=== PATIENT | female | born 1950 | race Caucasian/White ===

== ENCOUNTER 2023-08-28 20:05 | Inpatient (IN) | payer MEDICARE, SELFPAY ==
--- NOTE | 2023-08-28 | ECG_ITS ---
Test Reason : WEAKNESS Blood Pressure : / mmHG Vent. Rate : 115 BPM Atrial Rate : 115 BPM P-R Int : 152 ms QRS Dur : 080 ms QT Int : 344 ms P-R-T Axes : 068 037 092 degrees QTc Int : 475 ms Sinus tachycardia Low voltage QRS Cannot rule out Anterior infarct , age undetermined Abnormal ECG No previous ECGs available Referred By: Generic ED Physician Electronically Signed By:Shahram Whyte
--- NOTE | ~2023-08-28 | CT_ITS ---
EXAMINATION: CT HEAD WITHOUT CONTRAST CLINICAL INFORMATION: Fall. Injury. Pain. COMPARISON: None available. TECHNIQUE: Contiguous axial imaging was performed from the skull base to vertex without intravenous administration of contrast. This CT examination was performed using dose optimization techniques as appropriate, variously including the following: *Automated exposure control *Adjustment of mA and/or kV according to patient size (this includes techniques or standardized protocols for targeted exams where dose is matched to indication/reason for exam; i.e. extremities or head) *Use of iterative reconstruction technique DLP: 566 mGy-cm FINDINGS: The lateral, third and fourth ventricles are normally outlined. The cortical sulci and basal cisterns are normally outlined as well. There is scattered bilateral periventricular and central white matter diminished attenuation. There is no acute territorial defect, hemorrhage or midline shift. The extra-axial spaces are unremarkable. Calvarium/scalp: Intact. Maxillofacial sinuses and mastoids: Clear as visualized. CT/CT head/brain wo IV con IMPRESSION: No acute intracranial process seen.
--- NOTE | ~2023-08-28 | XR_ITS ---
EXAMINATION: XR CHEST CLINICAL INFORMATION: COPD. COMPARISON: None available. TECHNIQUE: Frontal view of the chest was obtained. FINDINGS: The heart, great vessels, pulmonary vasculature and mediastinum are normal. There is atherosclerotic calcification of the aortic knob. There is mild hyperinflation. There is biapical pleural and parenchymal scarring. No infiltrate, effusion or pneumothorax is seen. There is no acute osseous abnormality. XR/XR chest 1V IMPRESSION: No focal infiltrate or congestive heart failure is seen.
--- NOTE | ~2023-08-28 | MR_ITS ---
EXAMINATION: MR ABDOMEN WITHOUT CONTRAST CLINICAL INFORMATION: Elevated LFTs, common bile duct dilation COMPARISON: CT abdomen pelvis from earlier same day TECHNIQUE: MRI of the abdomen without contrast was obtained using routine sequences. Heavily T2 weighted MRCP sequences were also obtained. FINDINGS: LUNG BASES: The visualized lung bases are unremarkable. GALLBLADDER: Surgically absent. LIVER AND BILIARY TREE: The liver is normal in signal and morphology. Tiny, 5 mm posterior right hepatic lobe, segment 6 simple cyst (series 8, image 17). No suspicious liver lesion within limitations of noncontrast technique. Moderate diffuse intrahepatic and extrahepatic biliary duct dilation, with common bile duct measuring up to 1.5 cm in maximal diameter at the juani hepatis, and smoothly/gradually tapering towards the ampulla of Vater without discrete obstructing lesion or choledocholithiasis identified. PANCREAS: Conventional pancreatic ductal anatomy. No pancreatic duct dilation or irregularity. Preservation of the usual intrinsic parenchymal T1 hyperintense signal. SPLEEN: Tiny, 4 mm anterior splenic cyst. Otherwise unremarkable. ADRENAL GLANDS: Unremarkable KIDNEYS AND URETERS: Benign-appearing T2 hyperintense bilateral renal cysts, no imaging follow-up recommended. GASTROINTESTINAL TRACT: Unremarkable. LYMPH NODES: No lymphadenopathy. VASCULAR: Unremarkable ABDOMINAL WALL: Unremarkable. OSSEOUS STRUCTURES: Unremarkable. MR/MR MRCP IMPRESSION: Moderate diffuse biliary duct dilation which smoothly/gradually tapers towards the Ampulla of Vater without discrete obstructing lesion, choledocholithiasis, or associated intrahepatic ductal dilation identified. Degree of biliary ductal dilation is greater than expected for postcholecystectomy state, and in the setting of underlying LFT abnormalities, consider dedicated ERCP to assess for ampullary stricture/other imaging occult abnormality.
--- NOTE | ~2023-08-28 | CT_ITS ---
EXAMINATION: CT CHEST, ABDOMEN AND PELVIS WITH CONTRAST CLINICAL INFORMATION: Chest pain. COMPARISON: None available. TECHNIQUE: Multidetector volumetric CT imaging of the chest, abdomen and pelvis was obtained after the administration of 85 mL of Omnipaque 350 intravenous contrast without immediate adverse reactions. Axial MIP volume rendering provided. Sagittal and coronal reformatted images were obtained. This CT examination was performed using dose optimization techniques as appropriate, variously including the following: *Automated exposure control *Adjustment of mA and/or kV according to patient size (this includes techniques or standardized protocols for targeted exams where dose is matched to indication/reason for exam; i.e. extremities or head) *Use of iterative reconstruction technique DLP: 960 mGy-cm FINDINGS: CARD ROOM MANAGER: Unremarkable. LUNGS: There is diffuse emphysematous change most pronounced in the upper lung hall. There is right middle lobe and bibasilar scarring. There is no active infiltrate. MEDIASTINUM: The mediastinum is normal. PLEURA: There is no pleural effusion. No pleural mass or thickening. AXILLA: No lymphadenopathy. LIVER, GALLBLADDER, AND BILIARY TREE: The liver is normal in appearance. There is mild intrahepatic biliary duct dilatation. There is also common bile duct dilatation up to 1.2 cm. There has been a prior cholecystectomy. PANCREAS: Unremarkable. SPLEEN: Unremarkable. ADRENAL GLANDS: Unremarkable. KIDNEYS AND URETERS: The kidneys are normal in size, shape, and attenuation. There is a 3.2 cm cyst upper pole right kidney. There is a 1.3 cm cyst mid to lower pole left kidney. There is no hydronephrosis. BLADDER: Unremarkable.. GASTROINTESTINAL TRACT: There is thickening of the ascending, transverse and descending colon. There are diverticula of the descending and the sigmoid colon without evidence for diverticulitis. The appendix is not identified. ABDOMINAL WALL: Unremarkable. LYMPH NODES: Normal. VASCULAR: There is atherosclerotic plaque of the abdominal aorta with infrarenal aortic bulges measuring up to 2.7 cm. PELVIC VISCERA: Unremarkable. OSSEOUS STRUCTURES: Unremarkable. CT/CT chest w IV con IMPRESSION: 1. Diffuse emphysematous change. 2. Thickening of the ascending, transverse and descending colon. This is consistent with colitis. 3. Diverticulosis without evidence of diverticulitis. 4. Atherosclerotic plaque of the abdominal aorta with infrarenal aortic bulges measuring up to 2.7 cm. 5. Intrahepatic and extrahepatic biliary duct dilatation. The patient is status post cholecystectomy.
--- NOTE | ~2023-08-28 | CT_ITS ---
EXAMINATION: CT CHEST, ABDOMEN AND PELVIS WITH CONTRAST CLINICAL INFORMATION: Chest pain. COMPARISON: None available. TECHNIQUE: Multidetector volumetric CT imaging of the chest, abdomen and pelvis was obtained after the administration of 85 mL of Omnipaque 350 intravenous contrast without immediate adverse reactions. Axial MIP volume rendering provided. Sagittal and coronal reformatted images were obtained. This CT examination was performed using dose optimization techniques as appropriate, variously including the following: *Automated exposure control *Adjustment of mA and/or kV according to patient size (this includes techniques or standardized protocols for targeted exams where dose is matched to indication/reason for exam; i.e. extremities or head) *Use of iterative reconstruction technique DLP: 960 mGy-cm FINDINGS: CHIEF ENGINEER DRILLING AND RECOVERY: Unremarkable. LUNGS: There is diffuse emphysematous change most pronounced in the upper lung hall. There is right middle lobe and bibasilar scarring. There is no active infiltrate. MEDIASTINUM: The mediastinum is normal. PLEURA: There is no pleural effusion. No pleural mass or thickening. AXILLA: No lymphadenopathy. LIVER, GALLBLADDER, AND BILIARY TREE: The liver is normal in appearance. There is mild intrahepatic biliary duct dilatation. There is also common bile duct dilatation up to 1.2 cm. There has been a prior cholecystectomy. PANCREAS: Unremarkable. SPLEEN: Unremarkable. ADRENAL GLANDS: Unremarkable. KIDNEYS AND URETERS: The kidneys are normal in size, shape, and attenuation. There is a 3.2 cm cyst upper pole right kidney. There is a 1.3 cm cyst mid to lower pole left kidney. There is no hydronephrosis. BLADDER: Unremarkable.. GASTROINTESTINAL TRACT: There is thickening of the ascending, transverse and descending colon. There are diverticula of the descending and the sigmoid colon without evidence for diverticulitis. The appendix is not identified. ABDOMINAL WALL: Unremarkable. LYMPH NODES: Normal. VASCULAR: There is atherosclerotic plaque of the abdominal aorta with infrarenal aortic bulges measuring up to 2.7 cm. PELVIC VISCERA: Unremarkable. OSSEOUS STRUCTURES: Unremarkable. CT/CT abdomen pelvis w IV con IMPRESSION: 1. Diffuse emphysematous change. 2. Thickening of the ascending, transverse and descending colon. This is consistent with colitis. 3. Diverticulosis without evidence of diverticulitis. 4. Atherosclerotic plaque of the abdominal aorta with infrarenal aortic bulges measuring up to 2.7 cm. 5. Intrahepatic and extrahepatic biliary duct dilatation. The patient is status post cholecystectomy.
[2023-08-28 20:20] VITALS: BP 96/70; PULSE 120; O2SAT 87
--- NOTE | 2023-08-28 20:29 | MHC.EDTECH ---
at this time pt changed over into hospital gown and placed on cardiac and o2 monitor, placed on wall 02 at 4 L, vitals taken and pt appears to be in no apparent distress
[2023-08-28 20:32] VITALS: BP 125/49; PULSE 117; RESP 22; TEMP 37.3; O2SAT 95; BMI 28.3
[2023-08-28 20:57] VITALS: BP 125/49; PULSE 117; RESP 20; TEMP 37.3; O2SAT 90
[2023-08-28 20:59] LABS: MANUAL DIFF FLAG NO
[2023-08-28 21:02] LABS: Basophils Percent Auto 0.4 % (0-2); Eosinophils Percent Auto 0.1 % (0-4); Hematocrit 36.2 % (37.0-47.0); Imm Gran Abs Auto 0.03 X10*3/uL (0.00-0.03); Imm Gran Pct Auto 0.4 % (0.0-0.4); Lymphocytes Absolute Auto 0.8 X10*3/uL (1.2-4.9); Lymphocytes Percent Auto 11.1 % (20-40); Mean Corpuscular HGB Conc 33.1 g/dl (31.0-35.0); Mean Corpuscular Hemoglobin 31.1 pg (27.0-33.0); Mean Corpuscular Volume 93.8 fL (80.0-98.0); Mean Platelet Volume 9.8 fL (9.4-12.3); Monocytes Absolute Auto 0.7 X10*3/uL (0.1-1.2); Monocytes Percent Auto 9.9 % (2-11); Neutrophils Absolute Auto 5.6 x10*3/uL (2.0-8.3); Neutrophils Percent Auto 78.1 % (45-73); Platelet Count 254 X10*3/uL (160-400); Red Blood Count 3.86 X10*6/uL (4.20-5.50); Red Cell Distribution Width 12.5 % (11.0-16.0); White Blood Count 7.2 X10*3/uL (4.8-10.8)
[2023-08-28 21:15] LABS: Alanine Aminotransferase 692 U/L (0-31); Albumin Level 3.2 g/dL (3.5-5.0); Alkaline Phosphatase 296 U/L (39-117); Anion Gap 17 (12-20); Aspartate Amino Transferase 1117 U/L (5-31); Bilirubin Total 1.8 mg/dL (0.0-1.0); Blood Urea Nitrogen 12 mg/dL (9-16); Carbon Dioxide 26 mmol/L (22-29); Chloride 101 mmol/L (96-108); Estimated Glomerular Filt Rate 49; Glucose Random 161 mg/dL (60-115); Potassium 3.8 mmol/L (3.3-5.1); Sodium 140 mmol/L (135-145); Total Protein 6.8 g/dL (6.5-8.0)
[2023-08-28 21:37] LABS: Influenza A PCR NEGATIVE (Negative); Influenza B PCR NEGATIVE (Negative); Resp Syncy Virus RNA Qual PCR NEGATIVE (Negative); SARS COV2 PCR INHOUSE NEGATIVE (Negative)
--- NOTE | 2023-08-28 23:37 | ED.GENADULT ---
HPI - General Adult General Chief complaint: Fall Stated complaint: fall yesterday & today, decreased po intake Time Seen by Provider: 08/28/23 23:37 Source: patient, family and RN notes reviewed Mode of arrival: EMS Limitations: no limitations History of Present Illness HPI narrative: 73-year-old female who has a history of COPD on 3 L of oxygen at home, baseline oxygen saturation of 92-94% according to the patient, followed by Dr. Silveira, history of hyperlipidemia presents via EMS for increased weakness and increased falls. Patient states on occasion she would feel unsteady and have a minor fall. However the patient has had 2 falls in the past several days, 1 that resulted in her striking her head. Today the patient fell to her knees and was too weak to get up despite assistance with her family. At that time, her daughter noted her oxygen saturation to be 87% on 3 L. She denies any LOC. She denies any prodromal symptoms. Patient states as she is ambulating she feels weak causing her to fall to the ground. She has not on any anticoagulant medication. No prodromal symptoms. States she had been feeling well otherwise. Today she has had decreased p.o. intake. She is urinating and moving her bowels without difficulty. She denies any recent travel. No new foods or medications. Currently the patient reports feeling weak, and that her legs ?feel heavy?. She denies any alcohol use. Occasional Tylenol use, none recently. She denies any unintended weight loss. Patient does not use a cane or a walker while at home. She spends much of her time sedentary. She lives with her daughter and son-in-law. Related Data Allergies Allergy/AdvReac Type Severity Reaction Status Date / Time Penicillins Allergy Rash Verified 08/28/23 20:33 Sulfa (Sulfonamide Allergy Rash Verified 08/28/23 20:33 Antibiotics) Review of Systems Constitutional: Constitutional: Denies chills, Denies fever(s) and Denies headache(s) Eyes: Eyes: Denies change in vision and Denies other (No redness.) ENT: Denies headache(s) and Denies nasal discharge Cardiovascular: Cardiovascular: Denies chest pain, Denies palpitations and Denies orthopnea Respiratory: Respiratory: Denies cough Gastrointestinal: Gastrointestinal: Denies abdominal pain, Denies melena, Denies hematochezia, Denies diarrhea, Denies nausea and Denies vomiting Genitourinary: Genitourinary: Denies dysuria and Denies urinary urgency Musculoskeletal: Musculoskeletal: Denies back pain, Denies muscle weakness and Denies numbness Integumentary/Breasts: Skin/Breast: Denies rash Neurologic: Denies headache(s), Denies focal weakness and Denies numbness Psychiatric: Psychiatric: Denies depression Endocrine: Endocrine: Denies palpitations ON LICENSE OF [facility] Social History Social History Alcohol intake: never Smoked in Last 30 Days: No Use of substances other than those prescribed or required for medical reasons: No Advance Directives: No Advance Directives Information Provided: No Physical Exam ED Vital Signs: Vital Signs - 24 hr 08/28/23 20:32 08/28/23 20:57 08/29/23 00:10 Temperature 99.1 F 99.1 F 98.7 F Pulse Rate 117 H 117 H 98 Respiratory Rate 22 H 20 20 Blood Pressure 125/49 L 125/49 L 91/47 L Pulse Oximetry 95 90 L 96 Oxygen Delivery Method Nasal Cannula Nasal Cannula Nasal Cannula Oxygen Flow Rate 4 4 08/29/23 02:09 08/29/23 02:55 Temperature Pulse Rate 94 90 Respiratory Rate 16 20 Blood Pressure 107/44 L 99/39 L Pulse Oximetry 96 Oxygen Delivery Method Nasal Cannula Oxygen Flow Rate 4 BMI result Body Mass Index 28.3 Const General: cooperative Orientation/consciousness: patient oriented x3 Resp Other: Lung sounds diminished throughout but no wheezes rales or rhonchi Cardio Rate: regular rate Rhythm: regular rhythm GI Other: Abdomen is soft and nontender. There is no epigastric tenderness. No Romero's sign. No peritoneal signs Neuro General: patient oriented x3 and CN's II-XI intact bilaterally Extrem Other: No calf tenderness or pedal edema. Appraiser is 5/5 bilaterally. Upper extremities are equal to lower extremities. No pronator drift. NIH Stroke Scale Internal: Initial- Upon Arrival Time: 00:05 Level of Consciousness: Alert Level of Consciousness Questions: Answers both questions correctly Level of Consciousness Commands: Performs both tasks correctly Best Gaze: Normal Visual: No visual loss Facial Palsy: Normal Motor Arm (Right): No drift Motor Arm (Left): No drift Motor Leg (Right): No drift Motor Leg (Left): No drift Limb Ataxia: Absent Sensory: Normal Best Language: No aphasia Dysarthia: Normal Extinction and Inattention: No abnormality Score: 0 Course Course Course Narrative: August 29, 2023, 1:57 a.m. I spoke with Dr. Wooten from . Nothing additional at this time given that CT is pending at this time. Message to Dr. Hendrix for transfer of care. 2:[address] Hendrix will see the patient. Signed out to Dr. Randolph with imaging pending. Of note, BP improved to 107 systolic. Patient is resting comfortably at this time and is asymptomatic. No chest pain or shortness of breath. Dr. Randolph aware. Medications Administered Discontinued Medications Generic Name Dose Route Start Last Admin Trade Name Freq PRN Reason Stop Dose Admin Ceftriaxone Sodium 1 gm/ 50 mls @ 100 mls/hr 08/29/23 01:06 08/29/23 02:08 Sodium Chloride IV 08/29/23 01:35 Infused ONCE ONE Infusion Iohexol 85 ml 08/29/23 01:14 08/29/23 01:14 Iohexol 350 Mg/Ml 100 Ml Infus..Btl IV 08/29/23 01:15 85 ml ONCE ONE Administration Medical Decision Making Medical Decision Making MDM Narrative: 73-year-old female who has a history of COPD dependent on 3 L, hyperlipidemia, presenting with increased weakness and falls. Currently the patient has no physical complaints despite generalized weakness. No headache or vision changes. She has not orthostatic. Vitals are hemodynamically stable however patient noted to have fluctuations in her oxygen saturation. Upon my initial examination, patient was on 4 L of oxygen, maintaining a saturation of 87-92%. Patient does confirmed with movement that she feels weak but not necessarily shortness of breath or chest pain. EKG is sinus tach and chest x-ray does not reveal any acute process. Labs at this time demonstrate increased LFTs. The patient does not have a history of this. She is however on atorvastatin and ezetimibe. She denies any regular Tylenol use and no history of hepatitis or recent illness. Given these findings, CT of the abdomen and pelvis to further evaluate, including for malignancy. Due to the patient's falls, check head CT and further evaluate lungs , CT of chest. Hepatitis panel. Urinalysis. Patient's oxygen adjusted to her baseline at 3 L. she is maintaining 92% with a good plus at this time. Patient however will likely need to be brought to the hospital for further evaluation and management as she has not safe for discharge home and further investigation is needed. Discussed with Dr. Randolph who agrees with plan. -I received sign-out from my colleague SHANE Arroyo, CT scan of the abdomen pelvis shows colitis. Otherwise no abnormalities. -CT scans results were discussed with Dr. Hendrix, patient being admitted Differential Diagnosis Differential Diagnoses: The differential diagnosis associated with the presentation includes CVA Metabolic abnormality Malignancy Pneumonia COPD Deconditioning Admission/Observation Consideration of admission/observation: Escalation of care including admission/observation considered Consideration for medical admission if clinically warranted Lab Data MDM Lab Attestation statement: I reviewed the patient's lab results. 08/28/23 20:53 08/28/23 20:53 Labs: Lab Results 08/28/23 08/29/23 08/29/23 Range/Units 20:53 00:32 00:46 WBC 7.2 (4.8-10.8) X10*3/uL RBC 3.86 L (4.20-5.50) X10*6/uL Hgb 12.0 (12.0-16.0) g/dl Hct 36.2 L (37.0-47.0) % MCV 93.8 (80.0-98.0) fL MCH 31.1 (27.0-33.0) pg MCHC 33.1 (31.0-35.0) g/dl RDW 12.5 (11.0-16.0) % Plt Count 254 (160-400) X10*3/uL MPV 9.8 (9.4-12.3) fL Immature Gran % (Auto) 0.4 (0.0-0.4) % Neut % (Auto) 78.1 H (45-73) % Lymph % (Auto) 11.1 L (20-40) % [place] % (Auto) 9.9 (2-11) % Eos % (Auto) 0.1 (0-4) % Baso % (Auto) 0.4 (0-2) % Lymph # (Auto) 0.8 L (1.2-4.9) X10*3/uL [place] # (Auto) 0.7 (0.1-1.2) X10*3/uL Eos # (Auto) 0.0 (0.0-0.4) X10*3/uL Baso # (Auto) 0.0 (0.0-0.2) X10*3/uL Abs Immat Gran (auto) 0.03 (0.00-0.03) X10*3/uL Absolute Neuts (auto) 5.6 (2.0-8.3) x10*3/uL Absolute Nucleated RBC 0.000 (0.0-0.012) X10*3/uL Nucleated RBC % (auto) 0.0 (0.0-0.2) /100WBC Sodium 140 (135-145) mmol/L Potassium 3.8 (3.3-5.1) mmol/L Chloride 101 (96-108) mmol/L Carbon Dioxide 26 (22-29) mmol/L Anion Gap 17 (12-20) BUN 12 (9-16) mg/dL Creatinine 1.09 (0.5-1.4) mg/dL Estim Creat Clear Calc 49.0 Estimated GFR 49 Random Glucose 161 H (60-115) mg/dL Calcium 9.0 (8.4-10.2) mg/dL Total Bilirubin 1.8 H (0.0-1.0) mg/dL AST 1117 H (5-31) U/L ALT 692 H (0-31) U/L Alkaline Phosphatase 296 H (39-117) U/L Total Creatine Kinase 93 (26-140) U/L Troponin I High Sens 23.1 H (<3.5-17.0) ng/L Total Protein 6.8 (6.5-8.0) g/dL Albumin 3.2 L (3.5-5.0) g/dL Vitamin B12 1832 H (200-900) pg/mL Urine Color Dark Yellow Urine Appearance Turbid Urine pH 5.5 (5.0-9.0) Ur Specific [place] >= 1.030 H (1.005-1.025) Urine Protein 100 (2+) H (Neg-Trace) mg/dL Urine Glucose (UA) Negative (Negative) mg/dL Urine Ketones Trace (Negative) mg/dL Urine Blood Negative (Negative) Urine Nitrite Positive H (Negative) Ur Leukocyte Esterase Small (1+) H (Negative) Urine RBC 6-10 H (0-2) /HPF Urine WBC 11-20 H (0-5) /HPF Ur Squamous Epith Cells >20 (0-2) /HPF Urine Bacteria 3+ (None Seen) Hyaline Casts >20 (0-2) /LPF Granular Casts Present Influenza Type A (PCR) NEGATIVE (Negative) Influenza Type B (PCR) NEGATIVE (Negative) RSV RNA Qual (PCR) NEGATIVE (Negative) SARS-CoV-2 RNA (RT-PCR) NEGATIVE (Negative) Independent Interpretation I performed an independent interpretation of an: EKG Interpretation: Sinus tachycardia at 115 beats per minute. No acute ischemic changes. Radiology Impression Discussion of test interpretation with radiology: I have reviewed the radiologist's reading. Radiologist Impression: [place] [id number] CT Scan Report Signed Patient: Carol Vance MR#: [id number] : 1950 Acct:[id number] Age/Sex: 73 / F ADM Date: 08/28/23 Loc: HO.ED Attending Dr: Ordering Physician: Hermilo Arroyo Date of Service: 08/29/23 Procedure(s): CT head/brain wo IV con Accession Number(s): [id number] cc: Physician,Unknown ; Hermilo Arroyo~ EXAMINATION: CT HEAD WITHOUT CONTRAST CLINICAL INFORMATION: Fall. Injury. Pain. COMPARISON: None available. TECHNIQUE: Contiguous axial imaging was performed from the skull base to vertex without intravenous administration of contrast. This CT examination was performed using dose optimization techniques as appropriate, variously including the following: *Automated exposure control *Adjustment of mA and/or kV according to patient size (this includes techniques or standardized protocols for targeted exams where dose is matched to indication/reason for exam; i.e. extremities or head) *Use of iterative reconstruction technique DLP: 566 mGy-cm FINDINGS: The lateral, third and fourth ventricles are normally outlined. The cortical sulci and basal cisterns are normally outlined as well. There is scattered bilateral periventricular and central white matter diminished attenuation. There is no acute territorial defect, hemorrhage or midline shift. The extra-axial spaces are unremarkable. Calvarium/scalp: Intact. Maxillofacial sinuses and mastoids: Clear as visualized. CT/CT head/brain wo IV con IMPRESSION: No acute intracranial process seen. Dictated By: Mateo Benitez MD Signed By: <Electronically signed by Mateo Benitez MD in OV> 08/29/23 0153 DD/ 0110 TD/TT: Product Communications Manager: [address] [address] XRay Report Signed Patient: Carol Vance MR#: [id number] : 1950 Acct:[id number] Age/Sex: 73 / F ADM Date: 08/28/23 Loc: .ED Attending Dr: Ordering Physician: Generic ED Physician Date of Service: 08/28/23 Procedure(s): XR chest 1V Accession Number(s): [id number] cc: Generic ED Physician; Physician,Unknown ~ EXAMINATION: XR CHEST CLINICAL INFORMATION: COPD. COMPARISON: None available. TECHNIQUE: Frontal view of the chest was obtained. FINDINGS: The heart, great vessels, pulmonary vasculature and mediastinum are normal. There is atherosclerotic calcification of the aortic knob. There is mild hyperinflation. There is biapical pleural and parenchymal scarring. No infiltrate, effusion or pneumothorax is seen. There is no acute osseous abnormality. XR/XR chest 1V IMPRESSION: No focal infiltrate or congestive heart failure is seen. Dictated By: Lauro Melara MD Signed By: <Electronically signed by Lauro Melara MD in OV> 08/28/23 2241 DD/ 2145 TD/TT: Product Communications Manager: GONZÁLEZ Hou Historhumaira Clinical information obtained from an independent historian. History obtained from or confirmed by: Other (daughter and son in-law) External Record Review External record reviewed: Inpatient record (No previous admission) Critical Care Time Critical Care Time Critical Care Time: Yes Total Critical Care Time: 60 Attestation: Critial Care time with multiple repeat evaluations, patient and family updates, additional diagnostics ordered and interpreted. Discussion with the attending, GI and Hospital Medicine. Discharge Plan Discharge Clinical Impression: Weakness Patient Disposition: Still a Patient Print Language: Pashto
[2023-08-29] VITALS (10 sets, daily range): BP systolic 68–144; BP diastolic 39–67; PULSE 80–116; RESP 16–95; TEMP 36.4–37.7; O2SAT 90–97
[2023-08-29 00:53] LABS: Appearance Urine Turbid; Color Urine Dark Yellow; Glucose Urine UA Negative (Negative); Leukocyte Esterase Urine Small (1+) (Negative); Nitrite Urine Positive (Negative); PH 5.5 (5.0-9.0); Specific Gravity - Urine >= 1.030 (1.005-1.025); UMIC TRIGGER UACC YES; Urine Blood Negative (Negative); Urine Ketones Trace mg/dL (Negative); Urine Protein 100 (2+) mg/dL (Neg-Trace)
[2023-08-29 01:02] LABS: Troponin-I High Sensitivity 23.1 ng/L (<3.5-17.0)
[2023-08-29 01:07] LABS: Bacteria Urine 3+ (None Seen); Granular Casts Urine Present; Hyaline Casts Urine >20 /LPF (0-2); Squamous Epithelial Cell Urine >20 /HPF (0-2); UACC Culture Trigger YES
[2023-08-29] MEDS: iohexoL 350 MG/ML 100 ML INFUS..BTL 85 ML IV (01:14)
[2023-08-29 01:23] LABS: Vitamin B12 1832 pg/mL (200-900)
[2023-08-29] MEDS: cefTRIAXone sodium 1 GM in 0.9 % Sodium Chloride 50 ML IV (01:27)
[2023-08-29] MEDS: 0.9 % Sodium Chloride 1,000 ML 999 ML IVCONT (03:37)
[2023-08-29] MEDS: metroNIDAZOLE/NS 500 MG/100 ML PIGGYBACK 100 MG IV ×2 (03:37→13:19)
--- NOTE | 2023-08-29 05:24 | P.HPHOSP_ITS ---
History of Present Illness Date of Service: 08/29/23 Attending physician on admission: Reina Parra Chief Complaint: Generalized weakness Carol Vance is a very pleasant 73 years old woman with past medical history significant for hyperlipidemia, diverticulosis and COPD -on home O2 3L/min presents to the emergency department accompanied by her daughter and son-in-law complaining of generalized weakness over the last several days. She also mentioned that over the last week she has fallen twice. Denied any significant trauma. She denied any headache, shortness on breath, chest pain, abdominal pain, nausea, vomiting, fevers or chills. She reported watery nonbloody diarrhea over the last several days. She denied alcohol abuse, tobacco smoking or illicit drug use; and denied use of new medications. Abdominal surgery history is remarkable for cholecystectomy, hysterectomy and appendectomy. In the ED, she was found to have stable vital signs. Her blood pressure has been soft, lowest BP 91/47. Most recent blood pressure is 124/53. Oxygen saturation is normal and currently requiring 2 liters/minute supplemental oxygen which is her baseline. Blood workup is remarkable elevated LFTs, elevated vitamin B12 a slight elevation of troponin. Total CK is normal. CXR is negative. Urinalysis consistent with urinary tract infection. Head CT scan showed normal acute intracranial process. Chest, abdomen pelvis CT scan showed diffuse emphysematous changes, changes consistent with colitis, CBD dilatation up to 1.2 cm with mild intrahepatic biliary duct dilatation. ECG showed sinus tachycardia with a heart rate 115 beats anemia without ischemic changes. ED tx: Ceftriaxone 1 g IV, Flagyl 500 mg IV, NS 1 L bolus. Review of Systems 2 Review of Systems: All 12 systems were reviewed and normal except as noted in HPI. [facility] Medical History (Updated 08/29/23 @ 06:18 by Reina Parra MD) Chronic respiratory failure with hypoxia, on home O2 therapy COPD (chronic obstructive pulmonary disease) Hyperlipidemia Social History Alcohol intake: never Smoked in Last 30 Days: No Use of substances other than those prescribed or required for medical reasons: No Advance Directives: No Advance Directives Information Provided: No Meds Allergies Allergy/AdvReac Type Severity Reaction Status Date / Time Penicillins Allergy Rash Verified 08/28/23 20:33 Sulfa (Sulfonamide Allergy Rash Verified 08/28/23 20:33 Antibiotics) Active Medications: Current Medications Heparin Sodium (Porcine) (Heparin Sodium,Porcine 5,000 Unit/Ml Vial) 5,000 unit SUBCUT Q12H [facility] Lactated Ringer's (Lr) 1,000 mls @ 125 mls/hr IVCONT .Q8H ESTELA Melatonin (Melatonin 3 Mg Tablet) 6 mg PO BEDTIME PRN PRN Reason: Insomnia Sodium Chloride (0.9 % Sodium Chloride Flush 3 Ml Syringe) 3 ml IVFLUSH QSHIFT ESTELA Physical Exam 2 Vital Signs and Narrative: Vital Signs: Last Vital Signs Temp 98.7 F 08/29/23 00:10 Pulse 95 08/29/23 04:20 Resp 16 08/29/23 04:20 BP 124/53 L 08/29/23 04:20 Pulse Ox 96 08/29/23 04:20 O2 Del Method Nasal Cannula 08/29/23 04:20 O2 Flow Rate 3 08/29/23 04:20 Oxygen Flow Rate 4 08/28/23 20:32 BMI result Body Mass Index 28.3 Constitutional - Awake and Alert, No apparent distress. Pleasant. Cooperative. Nasal cannula in place. Afebrile. HEENT - Atraumatic head. PERRL, EOMI. Normal sclerae. Heart - S1S2, RRR, No edema Lungs - Normal lung expansion, Normal respiratory effort, No respiratory distress, CTA bilaterally Abdomen - NT / ND; increased BS; No rebound or guarding Extremities - no calf tenderness bilaterally, no swelling Musculoskeletal - Normal inspection, normal ROM Skin - Warm/Dry. No pallor. No jaundice. Neurological - Alert & oriented x3. No focal weakness grossly noted. Normal speech. Psychological - Appropriate affect Results Labs 08/28/23 20:53 08/28/23 20:53 Labs: Laboratory Results - last 24 hr 08/28/23 08/29/23 08/29/23 20:53 00:32 00:46 MCV 93.8 MCH 31.1 MCHC 33.1 RDW 12.5 Plt Count 254 MPV 9.8 Immature Gran % (Auto) 0.4 Neut % (Auto) 78.1 H Lymph % (Auto) 11.1 L [place] % (Auto) 9.9 Eos % (Auto) 0.1 Baso % (Auto) 0.4 Lymph # (Auto) 0.8 L [place] # (Auto) 0.7 Eos # (Auto) 0.0 Baso # (Auto) 0.0 Abs Immat Gran (auto) 0.03 Absolute Neuts (auto) 5.6 Absolute Nucleated RBC 0.000 Nucleated RBC % (auto) 0.0 Anion Gap 17 Estim Creat Clear Calc 49.0 Estimated GFR 49 Random Glucose 161 H Calcium 9.0 Total Bilirubin 1.8 H AST 1117 H ALT 692 H Alkaline Phosphatase 296 H Total Creatine Kinase 93 Troponin I High Sens 23.1 H Total Protein 6.8 Albumin 3.2 L Vitamin B12 1832 H Urine Color Dark Yellow Urine Appearance Turbid Urine pH 5.5 Ur Specific [place] >= 1.030 H Urine Protein 100 (2+) H Urine Glucose (UA) Negative Urine Ketones Trace Urine Blood Negative Urine Nitrite Positive H Ur Leukocyte Esterase Small (1+) H Urine RBC 6-10 H Urine WBC 11-20 H Ur Squamous Epith Cells >20 Urine Bacteria 3+ Hyaline Casts >20 Granular Casts Present Influenza Type A (PCR) NEGATIVE Influenza Type B (PCR) NEGATIVE RSV RNA Qual (PCR) NEGATIVE SARS-CoV-2 RNA (RT-PCR) NEGATIVE Imaging Radiologist's Impressions: Impressions Chest X-Ray 08/28/23 21:45 IMPRESSION: No focal infiltrate or congestive heart failure is seen. Head CT 08/29/23 01:10 IMPRESSION: No acute intracranial process seen. Abdomen/Pelvis CT 08/29/23 01:20 IMPRESSION: 1. Diffuse emphysematous change. 2. Thickening of the ascending, transverse and descending colon. This is consistent with colitis. 3. Diverticulosis without evidence of diverticulitis. 4. Atherosclerotic plaque of the abdominal aorta with infrarenal aortic bulges measuring up to 2.7 cm. 5. Intrahepatic and extrahepatic biliary duct dilatation. The patient is status post cholecystectomy. Chest CT 08/29/23 01:20 IMPRESSION: 1. Diffuse emphysematous change. 2. Thickening of the ascending, transverse and descending colon. This is consistent with colitis. 3. Diverticulosis without evidence of diverticulitis. 4. Atherosclerotic plaque of the abdominal aorta with infrarenal aortic bulges measuring up to 2.7 cm. 5. Intrahepatic and extrahepatic biliary duct dilatation. The patient is status post cholecystectomy. Assessment and Plan (1) Colitis: Status: Acute (2) Acute UTI: Status: Acute (3) Weakness: Status: Acute (4) Elevated LFTs: Status: Acute (5) Dilated cbd, acquired: Status: Acute Plan Carol Vance is a 73 y/o woman admitted with: * Elevated LFTs + CBD dilatation, possible choledocholithiasis. Admit to hospitalist service. NPO. Start IV fluids. Obtain MRCP. Continue to monitor LFTs. Check acute hepatitis panel. Check data bilirubin and lipase. GI consult. * Diarrhea likely secondary to colitis. Continue empiric IV antibiotic therapy with ceftriaxone and Flagyl. Check C diff and GI panel. Continue IV hydration. * UTI. Obtain urine culture. Continue ceftriaxone. * Elevated B12 level. Hold B12 supplementation. * Weakness, multiple falls. Physiotherapy when able. Check vitamin-D level. * Hyperlipidemia. Statin on hold due to elevated LFTs. * COPD. On home oxygen 3 L/min. No acute symptoms. Continue Advair or alternative. * Mood disorder. Continue the amitriptyline. * Diverticulosis w/o diverticulitis. No abdominal pain. DVT prophylaxis: Heparin Code status: Full Patient will need hospitalization for at least 2 midnights for elevated LFT and colitis management and further evaluation with IV fluids, IV antibiotic therapy, further imaging and evaluation by subspecialty. Quality Stroke Does the patient have a stroke diagnosis?: No VTE Prior VTE?: No VTE Risk Level:: Medical - moderate - high VTE Device Contraindication: N/A - Device Ordered VTE Drug Contraindication: N/A - Med Ordered
[2023-08-29 05:44] LABS: CDiff Gene PCR NEGATIVE (Negative)
[2023-08-29] MEDS: Lactated Ringers 1,000 ML 125 ML IVCONT ×3 (06:00→17:40)
[2023-08-29 07:02] LABS: MANUAL DIFF FLAG NO
--- NOTE | 2023-08-29 07:14 | PC.NURSE ---
Resumed care of pt at 0700. Pt resting in bed quietly, respirations even and unlabored, call silva within reach, pt aware of plan of care.
[2023-08-29 07:15] LABS: Basophils Absolute Auto 0.1 X10*3/uL (0.0-0.2); Basophils Percent Auto 0.8 % (0-2); Eosinophils Percent Auto 0.3 % (0-4); Hematocrit 37.4 % (37.0-47.0); Imm Gran Abs Auto 0.04 X10*3/uL (0.00-0.03); Imm Gran Pct Auto 0.5 % (0.0-0.4); Lymphocytes Absolute Auto 1.1 X10*3/uL (1.2-4.9); Lymphocytes Percent Auto 14.5 % (20-40); Mean Corpuscular HGB Conc 32.1 g/dl (31.0-35.0); Mean Corpuscular Hemoglobin 31.3 pg (27.0-33.0); Mean Corpuscular Volume 97.4 fL (80.0-98.0); Mean Platelet Volume 9.9 fL (9.4-12.3); Monocytes Percent Auto 12.1 % (2-11); Neutrophils Absolute Auto 5.7 x10*3/uL (2.0-8.3); Neutrophils Percent Auto 71.8 % (45-73); Platelet Count 201 X10*3/uL (160-400); Red Blood Count 3.84 X10*6/uL (4.20-5.50); Red Cell Distribution Width 12.8 % (11.0-16.0); White Blood Count 7.9 X10*3/uL (4.8-10.8)
[2023-08-29 07:31] LABS: Alanine Aminotransferase 550 U/L (0-31); Albumin Level 3.2 g/dL (3.5-5.0); Alkaline Phosphatase 264 U/L (39-117); Anion Gap 15 (12-20); Aspartate Amino Transferase 583 U/L (5-31); Bilirubin Direct 0.9 mg/dL (0.0-0.5); Bilirubin Total 1.2 mg/dL (0.0-1.0); Blood Urea Nitrogen 16 mg/dL (9-16); Calcium 8.9 mg/dL (8.4-10.2); Carbon Dioxide 25 mmol/L (22-29); Chloride 103 mmol/L (96-108); Creatinine Clr Calc Pharmacy 35.9; Estimated Glomerular Filt Rate 34; Glucose Random 112 mg/dL (60-115); Lipase 14 U/L (8-78); Potassium 3.8 mmol/L (3.3-5.1); Sodium 139 mmol/L (135-145); Total Protein 6.5 g/dL (6.5-8.0)
[2023-08-29 07:45] LABS: Vitamin D 25-OH Total 19.5 ng/mL (>30)
[2023-08-29] MEDS: Heparin Sodium,Porcine 5,000 UNIT/ML VIAL 5000 UNIT SUBCUT ×2 (08:26→21:35)
--- NOTE | 2023-08-29 08:36 | PC.NURSE ---
Pt a/ox4, respirations even and unlabored, inspiratory and expiratory wheezing heard throughout lung field, up in bed watching tv, pt aware of NPO status and ongoing plan of care.
--- NOTE | 2023-08-29 08:50 | PHA.MEDREC ---
Pharmacy Consult ? Medication Reconciliation Pharmacy has completed the medication reconciliation. Per patient, they have been prescribed metformin but do not take it as they have been testing their sugars daily and they have not been over 120 .
[2023-08-29] MEDS: levoFLOXacin/D5W 500 MG/100 ML PIGGYBACK 100 MG IV (09:10)
[2023-08-29 09:21] LABS: Adenovirus F 40/41 Not Detected (Not Detect.); Astrovirus Not Detected (Not Detect.); Campylobacter Not Detected (Not Detect.); Cryptosporidium Not Detected (Not Detect.); Cyclospora cayetanensis Not Detected (Not Detect.); E. coli EAEC Not Detected (Not Detect.); E. coli EPEC Detected (Not Detect.); E. coli ETEC Not Detected (Not Detect.); E. coli STEC Not Detected (Not Detect.); Entamoeba histolytica Not Detected (Not Detect.); Giardia lamblia Not Detected (Not Detect.); Norovirus GI/GII Not Detected (Not Detect.); Plesiomonas shigelloides Not Detected (Not Detect.); Rotavirus A Not Detected (Not Detect.); Salmonella Not Detected (Not Detect.); Sapovirus Not Detected (Not Detect.); Shigella sp./EIEC Not Detected (Not Detect.); Vibrio Not Detected (Not Detect.); Vibrio Cholerae Not Detected (Not Detect.); Yersinia enterocolitica Not Detected (Not Detect.)
--- NOTE | 2023-08-29 09:27 | PC.NURSE ---
MRI screening report faxxed to MRI
--- NOTE | 2023-08-29 09:27 | PC.NURSE ---
MRI screening form faxxed to MRI
[2023-08-29] MEDS: levoFLOXacin/D5W 250 MG/50 ML PIGGYBACK 50 MG IV (10:38)
--- NOTE | 2023-08-29 13:19 | CONS_ITS ---
DATE OF SERVICE: 08/29/2023 REFERRING PHYSICIAN: Reina Parra MD REASON FOR CONSULTATION: Elevated liver function tests. HISTORY OF PRESENT ILLNESS: The patient is a pleasant 73-year-old woman who was admitted to the hospital after presenting to the emergency room because of weakness and falls at home, she has also had some diarrhea and has a remote history of cholecystectomy. She was evaluated in the emergency department and found to have a urinary tract infection. CT scanning was obtained after liver function tests were noted to be elevated at the time of her initial blood work. This included an AST of 1117 and an ALT of 692 with mild elevations of her total bilirubin and more elevation of her alkaline phosphatase. CT imaging is reviewed. This is interpreted as showing thickening of the ascending, transverse, and descending colon consistent with colitis and also noted was intra and extrahepatic biliary ductal dilation. The patient has a remote history of a cholecystectomy approximately 50 years ago. She does recall undergoing colonoscopy approximately 4 years ago and was told this was negative. Since admission, she has been scheduled for MR imaging, which is pending. She has no complaints of right upper quadrant pain and no fevers or chills. She is on antibiotics for her urinary tract infection. PAST MEDICAL HISTORY: 1. COPD. On home oxygen. 2. Hyperlipidemia. 3. Diverticular disease. CURRENT MEDICATIONS: Her current medication list is reviewed in the chart. ALLERGIES: PENICILLIN AND SULFA. FAMILY HISTORY: This is reviewed with the patient and is negative for GI malignancy. SOCIAL HISTORY: There is no current tobacco, alcohol, or substance abuse. REVIEW OF SYSTEMS: SKIN: No pruritus. HEENT: Negative. CARDIOPULMONARY: She denies shortness of breath or chest pain. GASTROINTESTINAL: As above. GENITOURINARY: Negative. NEUROPSYCHIATRIC: Negative. PHYSICAL EXAMINATION: GENERAL: Shows a pleasant female, lying comfortably in bed. VITAL SIGNS: Reviewed in the electronic medical record and are stable. SKIN: Anicteric. HEENT: Shows no scleral icterus. NECK: Without lymphadenopathy or thyromegaly. LUNGS: Clear. HEART: Shows a regular rate and rhythm. S1, S2. No murmur. ABDOMEN: Soft. There is a well-healed midline incision from her previous gallbladder surgery. Bowel sounds are present. No organomegaly is noted. EXTREMITIES: Without edema. LABORATORY DATA AND IMAGING STUDIES: Reviewed. IMPRESSION: Elevated liver function tests and diarrhea with findings of colitis on CT scan. At this time, her liver function tests appear to be improving. She is scheduled for MRI imaging, although her biliary ductal dilation may be secondary to her long time post cholecystectomy state. The etiology for her liver function tests could be related to an ongoing infectious process either with her colitis or urinary tract infection or possibly medications. Although this seems to be the use of her antibiotics. I would recommend obtaining stool studies and monitoring her liver function tests. We will await the results of MRI imaging. Thanks for asking me to see her. I will follow her in the hospital with you. MD PRINCESS Roland/STEF / [phone]
[2023-08-29] MEDS: 0.9 % Sodium Chloride Flush 3 ML SYRINGE IVFLUSH (17:42)
--- NOTE | 2023-08-29 18:23 | HO.PM.IMPN ---
Subjective Subjective Date of Service: 08/29/23 Interval History: No acute issues overnight. Diarrhea slowly resolving Review of Systems Denies chest pain Denies shortness of breath Denies nausea vomiting diarrhea Denies fever chills Physical Exam Vital Signs: Vital Signs: Last Vital Signs Temp 97.7 F 08/29/23 16:00 Pulse 103 H 08/29/23 16:00 Resp 16 08/29/23 16:00 BP 124/57 L 08/29/23 16:00 Pulse Ox 94 08/29/23 16:00 O2 Del Method Nasal Cannula 08/29/23 16:00 O2 Flow Rate 3 08/29/23 16:00 Oxygen Flow Rate 4 08/28/23 20:32 BMI result Body Mass Index 28.3 Const: Other: Awake alert no acute distress Resp: Other: Clear to auscultation bilaterally no rales rhonchi or wheezes Cardio: Other: No S4; positive S1-S2; S3 murmurs rubs or gallops GI: Other: Soft nontender nondistended. Hyperactive bowel sounds Extrem: Other: No edema bilaterally Objective Data Active Medications Amitriptyline HCl (Amitriptyline Hcl 50 Mg Tablet) 100 mg PO BEDTIME [facility] Atorvastatin Calcium (Atorvastatin Calcium 20 Mg Tablet) 20 mg PO DAILY [facility] Cyanocobalamin (Cyanocobalamin (Vitamin B-12) 1,000 Mcg Tablet) 1,000 mcg PO DAILY [facility] Ezetimibe (Ezetimibe 10 Mg Tablet) 10 mg PO DAILY [facility] Heparin Sodium (Porcine) (Heparin Sodium,Porcine 5,000 Unit/Ml Vial) 5,000 unit SUBCUT Q12H [facility] Last Admin: 08/29/23 08:26 Dose: 5,000 unit Documented By: CHEIKH Lactated Ringer's (Lr) 1,000 mls @ 125 mls/hr IVCONT .Q8H [facility] Last Admin: 08/29/23 17:40 Dose: 125 mls/hr Documented By: LANG Melatonin (Melatonin 3 Mg Tablet) 6 mg PO BEDTIME PRN PRN Reason: Insomnia Sodium Chloride (0.9 % Sodium Chloride Flush 3 Ml Syringe) 3 ml IVFLUSH QSHIFT [facility] Last Admin: 08/29/23 17:42 Dose: 3 ml Documented By: LANG Labs 08/29/23 06:48 08/29/23 06:48 Labs: Laboratory Results - last 24 hr 08/28/23 08/29/23 08/29/23 20:53 00:32 00:46 MCV 93.8 MCH 31.1 MCHC 33.1 RDW 12.5 Plt Count 254 MPV 9.8 Immature Gran % (Auto) 0.4 Neut % (Auto) 78.1 H Lymph % (Auto) 11.1 L [place] % (Auto) 9.9 Eos % (Auto) 0.1 Baso % (Auto) 0.4 Lymph # (Auto) 0.8 L [place] # (Auto) 0.7 Eos # (Auto) 0.0 Baso # (Auto) 0.0 Abs Immat Gran (auto) 0.03 Absolute Neuts (auto) 5.6 Absolute Nucleated RBC 0.000 Nucleated RBC % (auto) 0.0 Anion Gap 17 Estim Creat Clear Calc 49.0 Estimated GFR 49 Random Glucose 161 H Calcium 9.0 Total Bilirubin 1.8 H Direct Bilirubin AST 1117 H ALT 692 H Alkaline Phosphatase 296 H Total Creatine Kinase 93 Troponin I High Sens 23.1 H Total Protein 6.8 Albumin 3.2 L Lipase Vitamin B12 1832 H 25-OH Vitamin D Total Urine Color Dark Yellow Urine Appearance Turbid Urine pH 5.5 Ur Specific [place] >= 1.030 H Urine Protein 100 (2+) H Urine Glucose (UA) Negative Urine Ketones Trace Urine Blood Negative Urine Nitrite Positive H Ur Leukocyte Esterase Small (1+) H Urine RBC 6-10 H Urine WBC 11-20 H Ur Squamous Epith Cells >20 Urine Bacteria 3+ Hyaline Casts >20 Granular Casts Present Stl C. cayetanensis PCR Stool Rotavirus A PCR Stl Adenov F 40/41 PCR Stool Astrovirus (PCR) Stool Campylobacter PCR Stool Cryptosporidium PCR Stl Sh Tox Pr E STEC PCR Stool E coli O157 PCR Stl Enterotoxigenic E PCR Stool EPEC (PCR) Stool EAEC (PCR) Stl E. histolytica PCR Stool Giardia Lamblia PCR Stl P. shigelloides PCR Stool Salmonella PCR Stool Sapovirus (PCR) Stl Shigella/EIEC PCR St Y.enterocolitica PCR Stool Vibrio (PCR) Stl Vibrio cholerae PCR Stl Norovirus GI/GII PCR C. difficile Tox B Gene Influenza Type A (PCR) NEGATIVE Influenza Type B (PCR) NEGATIVE RSV RNA Qual (PCR) NEGATIVE SARS-CoV-2 RNA (RT-PCR) NEGATIVE 08/29/23 08/29/23 04:46 06:48 MCV 97.4 MCH 31.3 MCHC 32.1 RDW 12.8 Plt Count 201 MPV 9.9 Immature Gran % (Auto) 0.5 H Neut % (Auto) 71.8 Lymph % (Auto) 14.5 L [place] % (Auto) 12.1 H Eos % (Auto) 0.3 Baso % (Auto) 0.8 Lymph # (Auto) 1.1 L [place] # (Auto) 1.0 Eos # (Auto) 0.0 Baso # (Auto) 0.1 Abs Immat Gran (auto) 0.04 H Absolute Neuts (auto) 5.7 Absolute Nucleated RBC 0.000 Nucleated RBC % (auto) 0.0 Anion Gap 15 Estim Creat Clear Calc 35.9 Estimated GFR 34 Random Glucose 112 Calcium 8.9 Total Bilirubin 1.2 H Direct Bilirubin 0.9 H AST 583 H ALT 550 H Alkaline Phosphatase 264 H Total Creatine Kinase Troponin I High Sens Total Protein 6.5 Albumin 3.2 L Lipase 14 Vitamin B12 25-OH Vitamin D Total 19.5 L Urine Color Urine Appearance Urine pH Ur Specific [place] Urine Protein Urine Glucose (UA) Urine Ketones Urine Blood Urine Nitrite Ur Leukocyte Esterase Urine RBC Urine WBC Ur Squamous Epith Cells Urine Bacteria Hyaline Casts Granular Casts Stl C. cayetanensis PCR Not Detected Stool Rotavirus A PCR Not Detected Stl Adenov F 40/41 PCR Not Detected Stool Astrovirus (PCR) Not Detected Stool Campylobacter PCR Not Detected Stool Cryptosporidium PCR Not Detected Stl Sh Tox Pr E STEC PCR Not Detected Stool E coli O157 PCR Not applicable Stl Enterotoxigenic E PCR Not Detected Stool EPEC (PCR) Detected A Stool EAEC (PCR) Not Detected Stl E. histolytica PCR Not Detected Stool Giardia [place] PCR Not Detected Stl P. shigelloides PCR Not Detected Stool Salmonella PCR Not Detected Stool Sapovirus (PCR) Not Detected Stl Shigella/EIEC PCR Not Detected St Y.enterocolitica PCR Not Detected Stool Vibrio (PCR) Not Detected Stl Vibrio cholerae PCR Not Detected Stl Norovirus GI/GII PCR Not Detected C. difficile Tox B Gene NEGATIVE Influenza Type A (PCR) Influenza Type B (PCR) RSV RNA Qual (PCR) SARS-CoV-2 RNA (RT-PCR) Assessment and Plan (1) Colitis: Status: Acute (2) Elevated LFTs: Status: Acute Plan Carol Vance is a 73 y/o woman admitted with weakness and falls and persistent diarrhea found to have E coli EPEC 1. Diarrhea (EPEC) with colitis -DC antibiotics -gentle volume repletion overnight -reassess in a.m. 2. Active urinary sediment -given above will hold antibiotics pending culture 3. Transaminitis -await formal MRCP read -appreciate Dr. Wooten is input -follow clinically (likely secondary to infection) Heparin Full Patient require ongoing hospitalization for volume repletion and specialty consultation Quality Stroke Does the patient have a stroke diagnosis?: No VTE Prior VTE?: No VTE Risk Level:: Medical - moderate - high VTE Device Contraindication: N/A - Device Ordered VTE Drug Contraindication: N/A - Med Ordered
[2023-08-29] MEDS: Amitriptyline HCl 50 MG TABLET 100 MG PO (21:35)
[2023-08-30] MEDS: Lactated Ringers 1,000 ML 125 ML IVCONT ×2 (02:14→14:45)
[2023-08-30 03:23] VITALS: BP 134/62; PULSE 95; RESP 20; TEMP 36.1; O2SAT 98
[2023-08-30 07:27] LABS: MANUAL DIFF FLAG NO
[2023-08-30 07:34] LABS: Basophils Absolute Auto 0.1 X10*3/uL (0.0-0.2); Basophils Percent Auto 0.8 % (0-2); Eosinophils Absolute Auto 0.2 X10*3/uL (0.0-0.4); Eosinophils Percent Auto 3.1 % (0-4); Hematocrit 32.3 % (37.0-47.0); Hemoglobin 10.4 g/dl (12.0-16.0); Imm Gran Abs Auto 0.09 X10*3/uL (0.00-0.03); Imm Gran Pct Auto 1.4 % (0.0-0.4); Lymphocytes Absolute Auto 1.2 X10*3/uL (1.2-4.9); Lymphocytes Percent Auto 19.3 % (20-40); Mean Corpuscular HGB Conc 32.2 g/dl (31.0-35.0); Mean Corpuscular Volume 96.4 fL (80.0-98.0); Mean Platelet Volume 9.6 fL (9.4-12.3); Monocytes Absolute Auto 0.8 X10*3/uL (0.1-1.2); Monocytes Percent Auto 12.6 % (2-11); Neutrophils Absolute Auto 4.1 x10*3/uL (2.0-8.3); Neutrophils Percent Auto 62.8 % (45-73); Platelet Count 220 X10*3/uL (160-400); Red Blood Count 3.35 X10*6/uL (4.20-5.50); Red Cell Distribution Width 12.7 % (11.0-16.0); White Blood Count 6.4 X10*3/uL (4.8-10.8)
[2023-08-30 07:59] LABS: Alanine Aminotransferase 298 U/L (0-31); Albumin Level 2.7 g/dL (3.5-5.0); Alkaline Phosphatase 190 U/L (39-117); Anion Gap 14 (12-20); Aspartate Amino Transferase 184 U/L (5-31); Bilirubin Total 0.4 mg/dL (0.0-1.0); Blood Urea Nitrogen 14 mg/dL (9-16); Calcium 8.6 mg/dL (8.4-10.2); Carbon Dioxide 27 mmol/L (22-29); Chloride 106 mmol/L (96-108); Creatinine Clr Calc Pharmacy 55.8; Estimated Glomerular Filt Rate 57; Glucose Fasting 80 mg/dL (60-99); Potassium 4.1 mmol/L (3.3-5.1); Sodium 143 mmol/L (135-145); Total Protein 5.8 g/dL (6.5-8.0)
[2023-08-30 08:00] VITALS: BP 129/58; PULSE 98; RESP 20; TEMP 36.5; O2SAT 90
[2023-08-30] MEDS: Heparin Sodium,Porcine 5,000 UNIT/ML VIAL 5000 UNIT SUBCUT ×2 (08:50→20:15)
[2023-08-30] MEDS: 0.9 % Sodium Chloride Flush 3 ML SYRINGE IVFLUSH (08:50)
[2023-08-30] MEDS: Ezetimibe 10 MG TABLET PO (08:50)
[2023-08-30] MEDS: Cyanocobalamin (Vitamin B-12) 1,000 MCG TABLET 1000 MCG PO (08:50)
[2023-08-30] MEDS: Atorvastatin Calcium 20 MG TABLET PO (08:50)
[2023-08-30 11:59] VITALS: BP 122/58; PULSE 100; RESP 20; TEMP 36.2; O2SAT 96
--- NOTE | 2023-08-30 12:18 | P.PNGI_ITS ---
Subjective Subjective Date of Service: 08/30/23 Interval History: feels better Critical Care Time (minutes): 0 Physical Exam 2 Vital Signs: Vital Signs: Last Vital Signs Temp 97.2 F 08/30/23 11:59 Pulse 100 08/30/23 11:59 Resp 20 08/30/23 11:59 BP 122/58 L 08/30/23 11:59 Pulse Ox 96 08/30/23 11:59 O2 Del Method Nasal Cannula 08/30/23 11:59 O2 Flow Rate 3 08/30/23 11:59 Oxygen Flow Rate 4 08/28/23 20:32 BMI result Body Mass Index 28.3 Const: General: cooperative GI: Other: abdomen is soft and nontender Objective Data Labs 08/30/23 07:01 08/30/23 07:01 Labs: Laboratory Results - last 24 hr 08/30/23 07:01 WBC 6.4 RBC 3.35 L Hgb 10.4 L Hct 32.3 L MCV 96.4 MCH 31.0 MCHC 32.2 RDW 12.7 Plt Count 220 MPV 9.6 Immature Gran % (Auto) 1.4 H Neut % (Auto) 62.8 Lymph % (Auto) 19.3 L [place] % (Auto) 12.6 H Eos % (Auto) 3.1 Baso % (Auto) 0.8 Lymph # (Auto) 1.2 [place] # (Auto) 0.8 Eos # (Auto) 0.2 Baso # (Auto) 0.1 Abs Immat Gran (auto) 0.09 H Absolute Neuts (auto) 4.1 Absolute Nucleated RBC 0.000 Nucleated RBC % (auto) 0.0 Sodium 143 Potassium 4.1 Chloride 106 Carbon Dioxide 27 Anion Gap 14 BUN 14 Creatinine 0.96 Estim Creat Clear Calc 55.8 Estimated GFR 57 Fasting Glucose 80 Calcium 8.6 Total Bilirubin 0.4 AST 184 H ALT 298 H Alkaline Phosphatase 190 H Total Protein 5.8 L Albumin 2.7 L Microbiology Microbiology Results: Microbiology 08/29/23 Unknown Urine clean catch - Clean Catch Midstream Urine Culture - Final Procedures Date of Service Date of Service: 08/30/23 Progress Note: A&P Assessment and plan (1) Elevated LFTs: Status: Acute Assessment and Plan: doing well i reviewed her mri, and do not see any cbd stones it has not been read, and radiology was called this am to have it read. lfts are better. Time Spent With Patient Time: Total time managing care of this patient today ____ minutes. Quality Stroke Does the patient have a stroke diagnosis?: No VTE Prior VTE?: No VTE Risk Level:: Medical - moderate - high VTE Device Contraindication: N/A - Device Ordered VTE Drug Contraindication: N/A - Med Ordered
[2023-08-30] MEDS: Loperamide HCl 2 MG CAPSULE PO ×2 (13:00→20:16)
--- NOTE | 2023-08-30 13:24 | P.PNIM_ITS ---
Subjective Subjective Date of Service: 08/30/23 Interval History: Slowly responding to volume. LFTs trending downward. No acute events overnight Review of Systems Denies chest pain Denies shortness of breath Denies nausea vomiting diarrhea Denies fever chills Physical Exam 2 Vital Signs: Vital Signs: Last Vital Signs Temp 97.2 F 08/30/23 11:59 Pulse 100 08/30/23 11:59 Resp 20 08/30/23 11:59 BP 122/58 L 08/30/23 11:59 Pulse Ox 96 08/30/23 11:59 O2 Del Method Nasal Cannula 08/30/23 11:59 O2 Flow Rate 3 08/30/23 11:59 Oxygen Flow Rate 4 08/28/23 20:32 BMI result Body Mass Index 28.3 Const: Other: Awake alert no acute distress Resp: Other: Clear to auscultation bilaterally no rales rhonchi or wheezes Cardio: Other: No S4; positive S1-S2; S3 murmurs rubs or gallops GI: Other: Soft nontender nondistended. Hyperactive bowel sounds Extrem: Other: No edema bilaterally Objective Data Active Medications Amitriptyline HCl (Amitriptyline Hcl 50 Mg Tablet) 100 mg PO BEDTIME [facility] Last Admin: 08/29/23 21:35 Dose: 100 mg Documented By: DAYSI Atorvastatin Calcium (Atorvastatin Calcium 20 Mg Tablet) 20 mg PO DAILY [facility] Last Admin: 08/30/23 08:50 Dose: 20 mg Documented By: NIKKI Cyanocobalamin (Cyanocobalamin (Vitamin B-12) 1,000 Mcg Tablet) 1,000 mcg PO DAILY [facility] Last Admin: 08/30/23 08:50 Dose: 1,000 mcg Documented By: NIKKI Ezetimibe (Ezetimibe 10 Mg Tablet) 10 mg PO DAILY [facility] Last Admin: 08/30/23 08:50 Dose: 10 mg Documented By: NIKKI Heparin Sodium (Porcine) (Heparin Sodium,Porcine 5,000 Unit/Ml Vial) 5,000 unit SUBCUT Q12H [facility] Last Admin: 08/30/23 08:50 Dose: 5,000 unit Documented By: NIKKI Lactated Ringer's (Lr) 1,000 mls @ 125 mls/hr IVCONT .Q8H [facility] Last Infusion: 08/30/23 10:46 Dose: Infused Documented By: NIKKI Loperamide HCl (Loperamide Hcl 2 Mg Capsule) 2 mg PO Q4H PRN PRN Reason: Diarrhea Last Admin: 08/30/23 13:00 Dose: 2 mg Documented By: NIKKI Melatonin (Melatonin 3 Mg Tablet) 6 mg PO BEDTIME PRN PRN Reason: Insomnia Sodium Chloride (0.9 % Sodium Chloride Flush 3 Ml Syringe) 3 ml IVFLUSH QSHIFT ESTELA Last Admin: 08/30/23 08:50 Dose: 3 ml Documented By: NIKKI Labs 08/30/23 07:01 08/30/23 07:01 Labs: Laboratory Results - last 24 hr 08/30/23 07:01 MCV 96.4 MCH 31.0 MCHC 32.2 RDW 12.7 Plt Count 220 MPV 9.6 Immature Gran % (Auto) 1.4 H Neut % (Auto) 62.8 Lymph % (Auto) 19.3 L [place] % (Auto) 12.6 H Eos % (Auto) 3.1 Baso % (Auto) 0.8 Lymph # (Auto) 1.2 [place] # (Auto) 0.8 Eos # (Auto) 0.2 Baso # (Auto) 0.1 Abs Immat Gran (auto) 0.09 H Absolute Neuts (auto) 4.1 Absolute Nucleated RBC 0.000 Nucleated RBC % (auto) 0.0 Anion Gap 14 Estim Creat Clear Calc 55.8 Estimated GFR 57 Fasting Glucose 80 Calcium 8.6 Total Bilirubin 0.4 AST 184 H ALT 298 H Alkaline Phosphatase 190 H Total Protein 5.8 L Albumin 2.7 L Microbiology Microbiology Results: Microbiology 08/29/23 Unknown Urine Culture - Final Urine clean catch - Clean Catch Midstream Assessment and Plan (1) Diarrhea: Status: Acute (2) Elevated LFTs: Status: Acute Plan Carol Vance is a 73 y/o woman admitted with weakness and falls and persistent diarrhea found to have E coli EPEC 1. Diarrhea (EPEC) with colitis -DC antibiotics -gentle volume repletion overnight -slowly improving 2. Active urinary sediment -culture consistent with contaminant. White count normal. Afebrile. No dysuria symptoms. -no treatment indicated at this time 3. Transaminitis -await formal MRCP read (read by Dr. Je preliminary) -appreciate Dr. Wooten is input -follow clinically (likely secondary to infection)... Trending downward Heparin Full Patient require ongoing hospitalization for volume repletion and specialty consultation Quality Stroke Does the patient have a stroke diagnosis?: No VTE Prior VTE?: No VTE Risk Level:: Medical - moderate - high VTE Device Contraindication: N/A - Device Ordered VTE Drug Contraindication: N/A - Med Ordered
--- NOTE | 2023-08-30 13:49 | PC.NURSE ---
Per Dr Mccullough via tiger text at 12:[address] Wooten verbally patient LR @ 12:30 can be discontinued.
--- NOTE | 2023-08-30 15:18 | PC.NURSE ---
Dr Mccullough gave a verbal order to start LR @ 125 with patient not being discharged until tomorrow and Lft's elevated.
[2023-08-30 15:58] VITALS: BP 167/78; PULSE 101; RESP 18; TEMP 36.3; O2SAT 92
--- NOTE | 2023-08-30 16:16 | MHC.CM.PN ---
PT REPORTS SHE LIVES WITH HER DAUGHTER AND SON IN LAW SHE IS INDEPENDENT WITH CARE AND USES OXYGEN AND A NEBULIZER PROVIDED BY [facility] PT DOES NOT HAVE A HCP, BUT WILL CONSIDER COMPLETING ONE PCP: [facility] IMM DELIVERED DCP: HOME NO SERVICES VIA FAMILY TRANSPORT
--- NOTE | 2023-08-30 18:17 | PC.NURSE ---
patient is alert and oriented. Tigertexted Dr. Mccullough at 18:06 regarding family concern of skin integrity. Provider read notification. at this time pat resting in bed, monitored on tele, equal and unlabored breathing. Bed in lowest position, bed alarm on and call silva in reach.
[2023-08-30 20:00] VITALS: BP 163/72; PULSE 101; TEMP 36.3; O2SAT 92
[2023-08-30] MEDS: Amitriptyline HCl 50 MG TABLET 100 MG PO (20:16)
[2023-08-31] VITALS: BP 142/85; PULSE 114; RESP 18; TEMP 36.6; O2SAT 92
[2023-08-31] MEDS: Lactated Ringers 1,000 ML 125 ML IVCONT (01:41)
[2023-08-31 04:00] VITALS: BP 126/58; PULSE 95; RESP 18; TEMP 36.7; O2SAT 92
[2023-08-31 05:05] LABS: HBS Num1 0.81 mIU/mL (0-7.99); HBsAGNum1 0.24 S/CO (0.00-0.99); Hepatitis A Antibody IgM 0.16 Index (0-0.79); Hepatitis B Core Antibody Nonreactive (Nonreactive); Hepatitis B Surface Antigen Negative (Negative); ~HepC Num1 0.17 S/CO (0.00-0.79); ~Hepatitis A Antibody IgM Nonreactive (Nonreactive); ~Hepatitis B Surface Antibody NONREACTIVE (Nonreactive); ~Hepatitis C Antibody Nonreactive (Nonreactive)
[2023-08-31 06:44] LABS: Basophils Percent Auto 0.7 % (0-2); Eosinophils Absolute Auto 0.2 X10*3/uL (0.0-0.4); Hematocrit 32.1 % (37.0-47.0); Hemoglobin 10.3 g/dl (12.0-16.0); Imm Gran Abs Auto 0.21 X10*3/uL (0.00-0.03); Imm Gran Pct Auto 3.8 % (0.0-0.4); Lymphocytes Absolute Auto 1.3 X10*3/uL (1.2-4.9); Lymphocytes Percent Auto 24.1 % (20-40); MANUAL DIFF FLAG SCAN; Mean Corpuscular HGB Conc 32.1 g/dl (31.0-35.0); Mean Corpuscular Hemoglobin 30.7 pg (27.0-33.0); Mean Corpuscular Volume 95.8 fL (80.0-98.0); Mean Platelet Volume 9.3 fL (9.4-12.3); Monocytes Absolute Auto 0.7 X10*3/uL (0.1-1.2); Monocytes Percent Auto 11.8 % (2-11); Neutrophils Absolute Auto 3.1 x10*3/uL (2.0-8.3); Neutrophils Percent Auto 55.6 % (45-73); Platelet Count 237 X10*3/uL (160-400); Red Blood Count 3.35 X10*6/uL (4.20-5.50); Red Cell Distribution Width 12.5 % (11.0-16.0); SCAN SMEAR FLAG 1; White Blood Count 5.5 X10*3/uL (4.8-10.8)
[2023-08-31 07:01] LABS: Alanine Aminotransferase 192 U/L (0-31); Albumin Level 2.7 g/dL (3.5-5.0); Alkaline Phosphatase 161 U/L (39-117); Anion Gap 13 (12-20); Aspartate Amino Transferase 80 U/L (5-31); Bilirubin Total 0.3 mg/dL (0.0-1.0); Blood Urea Nitrogen 11 mg/dL (9-16); Calcium 7.8 mg/dL (8.4-10.2); Carbon Dioxide 28 mmol/L (22-29); Chloride 106 mmol/L (96-108); Creatinine Clr Calc Pharmacy 62.2; Estimated Glomerular Filt Rate > 60; Glucose Fasting 112 mg/dL (60-99); Potassium 3.6 mmol/L (3.3-5.1); Sodium 143 mmol/L (135-145); Total Protein 5.7 g/dL (6.5-8.0)
[2023-08-31 07:42] LABS: SLIDE REVIEW VERIFIED
[2023-08-31 08:00] VITALS: BP 122/59; PULSE 106; RESP 22; TEMP 36.1; O2SAT 90
[2023-08-31] MEDS: Cyanocobalamin (Vitamin B-12) 1,000 MCG TABLET 1000 MCG PO (08:41)
[2023-08-31] MEDS: 0.9 % Sodium Chloride Flush 3 ML SYRINGE IVFLUSH (08:41)
[2023-08-31] MEDS: Heparin Sodium,Porcine 5,000 UNIT/ML VIAL 5000 UNIT SUBCUT (08:41)
[2023-08-31] MEDS: Ezetimibe 10 MG TABLET PO (08:41)
[2023-08-31] MEDS: Atorvastatin Calcium 20 MG TABLET PO (08:45)
[2023-08-31 11:44] VITALS: BP 119/82; PULSE 88; RESP 20; TEMP 36.1; O2SAT 95
[2023-08-31 14:02] VITALS: BP 119/82; PULSE 88; O2SAT 95
--- NOTE | 2023-08-31 14:48 | PM.DS ---
DS: Providers Provider Date of Service: 08/31/23 Date of admission: 08/29/23 04:14 Date of discharge: 08/31/23 Primary care physician: Tomer Mcmanus III, MD Consults: 08/29/23 05:34 Consult to Gastroenterology Routine Consulting Provider: Waqar Wooten Reason for consultation: Elevated LFTs, CBD dilatation Has provider been notified: No DS: Diagnosis Discharge Diagnosis (1) Diarrhea: Status: Acute (2) Elevated LFTs: Status: Acute DS: Summary Hospital Course Hospital Course: very pleasant 73 years old woman with past medical history significant for hyperlipidemia, diverticulosis and COPD -on home O2 3L/min presents to the emergency department accompanied by her daughter and son-in-law complaining of generalized weakness over the last several days. She also mentioned that over the last week she has fallen twice. Denied any significant trauma. She denied any headache, shortness on breath, chest pain, abdominal pain, nausea, vomiting, fevers or chills. She reported watery nonbloody diarrhea over the last several days. She denied alcohol abuse, tobacco smoking or illicit drug use; and denied use of new medications. Abdominal surgery history is remarkable for cholecystectomy, hysterectomy and appendectomy. In the ED, she was found to have stable vital signs. Her blood pressure has been soft, lowest BP 91/47. Most recent blood pressure is 124/53. Oxygen saturation is normal and currently requiring 2 liters/minute supplemental oxygen which is her baseline. Blood workup is remarkable elevated LFTs, elevated vitamin B12 a slight elevation of troponin. Total CK is normal. CXR is negative. Urinalysis consistent with urinary tract infection. Head CT scan showed normal acute intracranial process. Chest, abdomen pelvis CT scan showed diffuse emphysematous changes, changes consistent with colitis, CBD dilatation up to 1.2 cm with mild intrahepatic biliary duct dilatation. ECG showed sinus tachycardia with a heart rate 115 beats anemia without ischemic changes. Hospital Course admitted to telemetry; heart rate responded to volume repletion. Elevated LFTs on admission thought to be related to infection per GI. Stool ultimately grew E coli EPEC. Antibiotics were DC and she continued on volume repletion over the next 48 hours. On the day of discharge, she has not had any stools and was seen by Physical therapy who deemed her a candidate for home physical therapy. At this point in time she will be discharged home to follow up with the PCP Time Attestation Discharge Coordination Time (in mins): 35 Quality: Safe Use of Opioids Does Pt have an Active Cancer Diagnosis on the Problem List?: No Quality: Stroke Does the patient have a stroke diagnosis?: No Physical Exam Vital Signs: Vital Signs: Last Vital Signs Temp 97.0 F 08/31/23 11:44 Pulse 88 08/31/23 14:02 Resp 20 08/31/23 11:44 BP 119/82 08/31/23 14:02 Pulse Ox 95 08/31/23 14:02 O2 Del Method Nasal Cannula 08/31/23 11:44 O2 Flow Rate 3 08/31/23 11:44 Oxygen Flow Rate 4 08/28/23 20:32 BMI result Body Mass Index 28.3 Const: Other: Awake alert no acute distress Resp: Other: Clear to auscultation bilaterally no rales rhonchi or wheezes Cardio: Other: No S4; positive S1-S2; S3 murmurs rubs or gallops GI: Other: Soft nontender nondistended. Hyperactive bowel sounds Extrem: Other: No edema bilaterally DS: Data Data Completed and Pending Labs on day of discharge: Laboratory Results - last 24 hr 08/29/23 08/31/23 00:32 05:56 WBC 5.5 RBC 3.35 L Hgb 10.3 L Hct 32.1 L MCV 95.8 MCH 30.7 MCHC 32.1 RDW 12.5 Plt Count 237 MPV 9.3 L Immature Gran % (Auto) 3.8 H Neut % (Auto) 55.6 Lymph % (Auto) 24.1 [place] % (Auto) 11.8 H Eos % (Auto) 4.0 Baso % (Auto) 0.7 Lymph # (Auto) 1.3 [place] # (Auto) 0.7 Eos # (Auto) 0.2 Baso # (Auto) 0.0 Abs Immat Gran (auto) 0.21 H Absolute Neuts (auto) 3.1 Absolute Nucleated RBC 0.000 Nucleated RBC % (auto) 0.0 Smear Tech's Comments VERIFIED Sodium 143 Potassium 3.6 Chloride 106 Carbon Dioxide 28 Anion Gap 13 BUN 11 Creatinine 0.86 Estim Creat Clear Calc 62.2 Estimated GFR > 60 Fasting Glucose 112 H Calcium 7.8 L D Total Bilirubin 0.3 AST 80 H ALT 192 H Alkaline Phosphatase 161 H Total Protein 5.7 L Albumin 2.7 L Hepatitis A IgM Ab Nonreactive Hep Bs Antigen Negative Hep Bs Antibody NONREACTIVE Hep B Core Total Ab Nonreactive Hepatitis C Ab (EIA) Nonreactive Discharge Plan Discharge Anticipated Discharge Date/Time: 08/31/23 14:44 Patient Disposition: Home Health Service Discharge Diagnosis: diarrhea secondary to EPEC Referrals: Tomer Mcmanus III, MD [Primary Care Provider] - 1 Week Discharge Medications: Continued atorvastatin 20 mg tablet 20 mg PO DAILY alendronate 70 mg tablet 70 mg PO TH@0900 cyanocobalamin (vitamin B-12) [Vitamin B-12] 1,000 mcg tablet 1,000 mcg PO DAILY amitriptyline 100 mg tablet 100 mg PO BEDTIME ezetimibe 10 mg tablet 10 mg PO DAILY fluticasone propion-salmeterol [Advair HFA] 115-21 mcg/actuation HFA aerosol inhaler 2 puff inhalation BID esomeprazole magnesium [Nexium 24HR] 20 mg Capsule,Delayed Release(Dr/Ec) 20 mg PO DAILY@0630 Discharge Orders: Discharge Order (Routine); Ordered 08/31/23 Ordered By: Richard Mccullough Diet: Advance to usual diet Activity on Discharge: As tolerated Stand Alone Forms: Patient Portal Discharge page Print Language: Ukrainian Care Plan Goals: resume all medications as taken prior to hospital Health Concerns: drink plenty of fluids. physical therapy will be evaluating you for treatment at home Plan of Treatment: follow-up with PCP next available Assessment: see discharge summary
--- NOTE | 2023-08-31 15:04 | MHC.CM.PN ---
Patient has been medically cleared for dc to home today, with services. A referral was made to [facility], who has been made aware of today's dc. Last IMM addressed on 08/30/2023.
--- NOTE | 2023-09-01 12:53 | W.MHC.F2F ---
Service Date Service Date: 09/01/23 Encounter Date of encounter: 08/31/23 Encounter: Acute hospitalization Reasons for Services Signs and symptoms assessed: Volume status blood pressure and respiratory status Reason for nursing home: medication management and teach disease management Reason for physical therapy: home safety and mobility and gait/transfer training Homebound: Leaving the home is medically contraindicated at this time without the asist of a device and/or another person due th the listed conditions above and below. Reason homebound: unsteady gait / fall risk and unable to drive Certification: Based on the above findings, I certify that this patient is confined to the home and needs intermittent nursing home care, physical therapy and/or speech therapy, or continues to need occupational therapy. The patient is under my care, and I have initiated the establishment of the plan of care. The patient will be followed by a physician who will periodically review the plan of care. Time Spent With Patient Time: Total time managing care of this patient today ____ minutes.
== END 2023-08-31 17:53 | disposition home health service (06) | DRG 373 ==
LOC: HO.ED 08-29 03:31 → HO.EDOVER 08-29 04:25 → HO.IMC 08-29 14:23
PROVIDERS: Physician Assistant; Admitting Provider Internal Medicine; Emergency Provider Emergency Medicine; PCP Internal Medicine; Visit Provider Hospitalist
DX: A04.0 Enteropathogenic Escherichia coli infection (principal); J44.9 Chronic obstructive pulmonary disease, unspecified; F39 Unspecified mood [affective] disorder; E78.5 Hyperlipidemia, unspecified; R29.6 Repeated falls; Z20.822 Contact with and (suspected) exposure to COVID-19; Z99.81 Dependence on supplemental oxygen; Z87.891 Personal history of nicotine dependence; Z79.51 Long term (current) use of inhaled steroids; Z79.899 Other long term (current) drug therapy
CPT/HCPCS: 0241U; 36415; 70450; 71045; 71260; 74177; 74181; 80053; 81001; 82248; 82306; 82550; 82607; 83690; 84484; 85025; 86704; 86706; 86709; 86803; 87086; 87177; 87209; 87340; 87493; 87507; 93005; 97161; 99285; J0696; J1644; J1836; J1956; J7120; Q9967

== ENCOUNTER → 2023-08-28 20:35 | Outpatient (BNV) | payer MEDICARE, SELFPAY | PROVIDERS: Admitting Provider Internal Medicine; Emergency Provider Emergency Medicine; Visit Provider Internal Medicine Cardiovascular Disease | DX: R94.31 Abnormal electrocardiogram [ECG] [EKG] (principal) | CPT/HCPCS: 93010 ==

== ENCOUNTER → 2023-08-29 04:14 | Outpatient (BNV) | payer MEDICARE, SELFPAY | PROVIDERS: Admitting Provider Internal Medicine; Emergency Provider Emergency Medicine; Visit Provider Internal Medicine | DX: R19.7 Diarrhea, unspecified (principal); R79.89 Other specified abnormal findings of blood chemistry | CPT/HCPCS: 99223; 99232; 99239; 99499; G0180 ==

== ENCOUNTER 2024-06-12 14:37 | Emergency (ER) | payer MEDICARE, SELFPAY ==
--- NOTE | ~2024-06-12 | CT_ITS ---
CLINICAL HISTORY: flank pain CT abdomen and pelvis without contrast Comparison: None Findings: No consolidation or effusion. Cholecystectomy. Mild fatty atrophy of the pancreas. Liver, spleen, and adrenal glands are within normal limits. No hydronephrosis or urolithiasis. Right renal cysts. 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 Diverticulosis. No bowel obstruction, pneumatosis or pneumoperitoneum. Aortic atherosclerosis. Ectatic infrarenal aorta measuring 2.7 cm. Hysterectomy. Urinary bladder is within normal limits. No acute fracture. IMPRESSION: 1. No acute intraabdominal or pelvic pathology. 2. 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 This document has been electronically signed by: Camacho Calderón MD on 06/12/2024 18:17:36
[2024-06-12 14:49] VITALS: BP 146/77; PULSE 99; RESP 16; TEMP 36.6; O2SAT 94; BMI 26.3
--- NOTE | 2024-06-12 14:55 | ED_ITS ---
HPI - Female Genitourinary General Chief complaint: Urogenital-Female Stated complaint: UTI Time Seen by Provider: 06/12/24 17:17 History of Present Illness ED Provider: Dr. Fitch HPI Narrative: 74 y/o F patient; PMH COPD on baseline 3L O2, HLD; presents from home with concern for cystitis. The patient endorses urinary frequency, dysuria, and right lower back pain. She denies: fever or chills, nausea/vomiting, hematuria, SOB, cough/congestion, chest pain, abdominal pain. Related Data Home Medications ?Medication ?Instructions ?Recorded ?Confirmed alendronate 70 mg tablet 70 mg PO TH@0900 08/29/23 08/29/23 amitriptyline 100 mg tablet 100 mg PO BEDTIME 08/29/23 08/29/23 atorvastatin 20 mg tablet 20 mg PO DAILY 08/29/23 08/29/23 cyanocobalamin (vitamin B-12) 1,000 mcg PO DAILY 08/29/23 08/29/23 1,000 mcg tablet (Vitamin B-12) esomeprazole magnesium 20 mg 20 mg PO DAILY@0630 08/29/23 08/29/23 capsule,delayed release (Nexium 24HR) ezetimibe 10 mg tablet 10 mg PO DAILY 08/29/23 08/29/23 fluticasone propionate 115 2 puff inhalation BID 08/29/23 08/29/23 mcg-salmeterol 21 mcg/actuation HFA inhaler (Advair HFA) Previous Rx's ?Medication ?Instructions ?Recorded clotrimazole-betamethasone 1 1 appl topical BID 2 weeks #45 08/31/23 %-0.05 % topical cream grams Allergies Allergy/AdvReac Type Severity Reaction Status Date / Time Penicillins Allergy Rash Verified 06/12/24 14:51 Sulfa (Sulfonamide Allergy Rash Verified 06/12/24 14:51 Antibiotics) Review of Systems 2 Review of Systems: Yes all other systems are reviewed and are negative PMFSH Past Medical History Attestation statement: The following information was validated with the patient. Source: old records reviewed Medical History Dilated cbd, acquired Colitis Acute UTI Chronic respiratory failure with hypoxia, on home O2 therapy COPD (chronic obstructive pulmonary disease) Hyperlipidemia Social History Social History Household Members: Family Housing: House Alcohol intake: never Patient Tobacco Use Status: Former Tobacco user Advance Directives: No Advance Directives Information Provided: No Patient : No service: No Physical Exam 2 Vital Signs: Vital Signs: Last Vital Signs Temp 97.7 F 06/12/24 18:53 Pulse 92 06/12/24 18:53 Resp 16 06/12/24 18:53 BP 146/66 H 06/12/24 18:53 Pulse Ox 98 06/12/24 18:53 O2 Del Method Nasal Cannula 06/12/24 18:53 O2 Flow Rate 2 06/12/24 18:53 Oxygen Flow Rate 2 06/12/24 14:49 BMI result Body Mass Index 26.3 Patient is afebrile, hemodynamically stable, and saturating well on baseline 2 - 3L NC. Const: General: cooperative and no acute distress HEENT: Head: Yes normal to inspection and Yes atraumatic Eyes: General: appearance normal, both eyes and all related structures P upils: Equal, round and reactive pupils present EOM: EOMs intact bilaterally Neck: Neck: Yes normal visual inspection, Yes full ROM, Yes supple and No tender Chest: Chest palpation & inspection: normal inspection of the chest and normal palpation of entire chest wall Resp: Effort & Inspection: normal respiratory effort, able to speak in complete sentences, no cough and no respiratory distress Auscultation: clear to auscultation bilaterally Cardio: Rate: regular rate Rhythm: regular rhythm Peripheral pulses: P eripheral pulses 2+ throughout GI: Inspection: Yes normal to inspection, No Abdominal wall edema and No distended Palpation (GI): Soft to palpation, not firm, nontender, no guarding and not rigid Auscultation: normal bowel sounds Back/Spine/Pelvis: Back: No back tenderness Neuro: Cranial nerves: Yes Equal, round and reactive pupils present Course Course Course Narrative: RME: 74-year-old female presents to ED for chronic right lower back pain and increased urinary frequency with dysuria. Patient has been dealing with a chronic UTI since February. Patient has been on multiple antibiotics. Patient came to the ED today for re-evaluation. Labs ordered. Reevaluation(s) Reevaluation #1: Patient is afebrile and hemodynamically stable. Reviewed work up ordered in triage - labs, UA, and CT Abdomen/Pelvis w/o contrast. CT scan unremarkable for acute pathology. Labs reviewed. No leukocytosis. Mild anemia, baseline. UA without evidence of cystitis. I discussed with the patient that with normal labs, and a UA without evidence of cystitis, I would suspect possible overactive bladder. I will refer the patient to OBGYN for further evaluation and recommendations. Plan: Discharge to home with out-patient follow up Return precautions given Medical Decision Making Lab Data 06/12/24 16:18 06/12/24 16:18 Labs: Lab Results 06/12/24 Range/Units 16:18 WBC 9.2 (4.8-10.8) X10*3/uL RBC 3.78 L (4.20-5.50) X10*6/uL Hgb 11.7 L (12.0-16.0) g/dl Hct 36.2 L (37.0-47.0) % MCV 95.8 (80.0-98.0) fL MCH 31.0 (27.0-33.0) pg MCHC 32.3 (31.0-35.0) g/dl RDW 12.7 (11.0-16.0) % Plt Count 214 (160-400) X10*3/uL MPV 9.6 (9.4-12.3) fL Immature Gran % (Auto) 0.1 (0.0-0.4) % Neut % (Auto) 74.0 H (45-73) % Lymph % (Auto) 15.9 L (20-40) % [place] % (Auto) 9.2 (2-11) % Eos % (Auto) 0.3 (0-4) % Baso % (Auto) 0.5 (0-2) % Lymph # (Auto) 1.5 (1.2-4.9) X10*3/uL [place] # (Auto) 0.9 (0.1-1.2) X10*3/uL Eos # (Auto) 0.0 (0.0-0.4) X10*3/uL Baso # (Auto) 0.1 (0.0-0.2) X10*3/uL Abs Immat Gran (auto) 0.01 (0.00-0.03) X10*3/uL Absolute Neuts (auto) 6.8 (2.0-8.3) x10*3/uL Absolute Nucleated RBC 0.000 (0.0-0.012) X10*3/uL Nucleated RBC % (auto) 0.0 (0.0-0.2) /100WBC Sodium 144 (135-145) mmol/L Potassium 4.2 (3.3-5.1) mmol/L Chloride 103 (96-108) mmol/L Carbon Dioxide 29 (22-29) mmol/L Anion Gap 16 (12-20) BUN 11 (9-16) mg/dL Creatinine 0.71 (0.5-1.4) mg/dL Estim Creat Clear Calc 71.7 Estimated GFR > 60 Random Glucose 125 H (60-115) mg/dL Calcium 10.1 D (8.4-10.2) mg/dL Total Bilirubin 1.0 (0.0-1.0) mg/dL AST 19 (5-31) U/L ALT 15 (0-31) U/L Alkaline Phosphatase 48 (39-117) U/L Total Protein 7.4 (6.5-8.0) g/dL Albumin 4.0 (3.5-5.0) g/dL Lipase 10 (8-78) U/L Urine Color Dark Yellow Urine Appearance Clear Urine pH 6.0 (5.0-9.0) Ur Specific [place] 1.025 (1.005-1.025) Urine Protein Trace (Neg-Trace) mg/dL Urine Glucose (UA) Negative (Negative) mg/dL Urine Ketones Trace (Negative) mg/dL Urine Blood Negative (Negative) Urine Nitrite Negative (Negative) Ur Leukocyte Esterase Trace H (Negative) Urine RBC 0-2 (0-2) /HPF Urine WBC 0-5 (0-5) /HPF Ur Squamous Epith Cells 3-5 (0-2) /HPF Urine Bacteria None Seen (None Seen) Hyaline Casts 0-2 (0-2) /LPF Radiology Impression Discussion of test interpretation with radiology: I have reviewed the radiologist's reading. Radiologist Impression: CLINICAL HISTORY: flank pain CT abdomen and pelvis without contrast Comparison: None Findings: No consolidation or effusion. Cholecystectomy. Mild fatty atrophy of the pancreas. Liver, spleen, and adrenal glands are within normal limits. No hydronephrosis or urolithiasis. Right renal cysts. 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 Diverticulosis. No bowel obstruction, pneumatosis or pneumoperitoneum. Aortic atherosclerosis. Ectatic infrarenal aorta measuring 2.7 cm. Hysterectomy. Urinary bladder is within normal limits. No acute fracture. IMPRESSION: 1. No acute intraabdominal or pelvic pathology. 2. 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 This document has been electronically signed by: Camacho Calderón MD on 06/12/2024 18:17:36 Discharge Plan Discharge Clinical Impression: OAB (overactive bladder) Patient Disposition: Home, Self-Care Instructions: Overactive Bladder (DC) Additional Instructions: Your lab work, urine, and CT scan were reassuring. I do wonder if you have an overactive bladder. Make an appointment with the OBGYN on Thursday (06/13/2024) to be seen in their office as soon as possible. Return to the emergency department for: Worsening or changing abdominal pain Fever Peeing blood Prescriptions: No Action atorvastatin 20 mg tablet 20 mg PO DAILY alendronate 70 mg tablet 70 mg PO TH@0900 cyanocobalamin (vitamin B-12) [Vitamin B-12] 1,000 mcg tablet 1,000 mcg PO DAILY amitriptyline 100 mg tablet 100 mg PO BEDTIME ezetimibe 10 mg tablet 10 mg PO DAILY fluticasone propion-salmeterol [Advair HFA] 115-21 mcg/actuation HFA aerosol inhaler 2 puff inhalation BID esomeprazole magnesium [Nexium 24HR] 20 mg Capsule,Delayed Release(Dr/Ec) 20 mg PO DAILY@0630 clotrimazole-betamethasone 1-0.05 % cream 1 appl topical BID 14 Days Qty: 45 1RF Referrals: Zohaib Esquivel MD [Physician] - (Call this number to make an appointment with OBGYN. ) Interventions: ED Discharge Assessment Last Done: 06/12/24 18:53 Discharge Date/Time: 06/12/24 18:53 Print Language: Amharic
[2024-06-12 16:23] LABS: MANUAL DIFF FLAG NO
[2024-06-12 16:24] LABS: Basophils Absolute Auto 0.1 X10*3/uL (0.0-0.2); Basophils Percent Auto 0.5 % (0-2); Eosinophils Percent Auto 0.3 % (0-4); Hematocrit 36.2 % (37.0-47.0); Hemoglobin 11.7 g/dl (12.0-16.0); Imm Gran Abs Auto 0.01 X10*3/uL (0.00-0.03); Imm Gran Pct Auto 0.1 % (0.0-0.4); Lymphocytes Absolute Auto 1.5 X10*3/uL (1.2-4.9); Lymphocytes Percent Auto 15.9 % (20-40); Mean Corpuscular HGB Conc 32.3 g/dl (31.0-35.0); Mean Corpuscular Volume 95.8 fL (80.0-98.0); Mean Platelet Volume 9.6 fL (9.4-12.3); Monocytes Absolute Auto 0.9 X10*3/uL (0.1-1.2); Monocytes Percent Auto 9.2 % (2-11); Neutrophils Absolute Auto 6.8 x10*3/uL (2.0-8.3); Platelet Count 214 X10*3/uL (160-400); Red Blood Count 3.78 X10*6/uL (4.20-5.50); Red Cell Distribution Width 12.7 % (11.0-16.0); White Blood Count 9.2 X10*3/uL (4.8-10.8)
[2024-06-12 16:25] LABS: Appearance Urine Clear; Color Urine Dark Yellow; Glucose Urine UA Negative (Negative); Leukocyte Esterase Urine Trace (Negative); Nitrite Urine Negative (Negative); Specific Gravity - Urine 1.025 (1.005-1.025); UMIC TRIGGER UACC YES; Urine Blood Negative (Negative); Urine Ketones Trace mg/dL (Negative); Urine Protein Trace mg/dL (Neg-Trace)
[2024-06-12 16:47] LABS: Bacteria Urine None Seen (None Seen); Hyaline Casts Urine 0-2 /LPF (0-2); RBC Urine 0-2 /HPF (0-2); WBC Urine 0-5 /HPF (0-5)
[2024-06-12 16:49] LABS: Alanine Aminotransferase 15 U/L (0-31); Anion Gap 16 (12-20); Aspartate Amino Transferase 19 U/L (5-31); Blood Urea Nitrogen 11 mg/dL (9-16); Calcium 10.1 mg/dL (8.4-10.2); Carbon Dioxide 29 mmol/L (22-29); Chloride 103 mmol/L (96-108); Creatinine Clr Calc Pharmacy 71.7; Estimated Glomerular Filt Rate > 60; Glucose Random 125 mg/dL (60-115); Lipase 10 U/L (8-78); Potassium 4.2 mmol/L (3.3-5.1); Sodium 144 mmol/L (135-145); Total Protein 7.4 g/dL (6.5-8.0)
[2024-06-12 16:58] LABS: Alkaline Phosphatase 48 U/L (39-117)
[2024-06-12 17:41] VITALS: BP 146/66; PULSE 92; RESP 16; TEMP 36.5; O2SAT 98
[2024-06-12 18:14] VITALS: BP 146/66; PULSE 92; RESP 16; TEMP 36.5; O2SAT 98
[2024-06-12 18:53] VITALS: BP 146/66; PULSE 92; RESP 16; TEMP 36.5; O2SAT 98
== END 2024-06-12 18:53 | disposition home or self-care (01) ==
PROVIDERS: Emergency Provider Emergency Medicine; PCP Internal Medicine
DX: N32.81 Overactive bladder (principal); R10.9 Unspecified abdominal pain; R35.0 Frequency of micturition; R30.0 Dysuria; M54.50 Low back pain, unspecified
CPT/HCPCS: 36415; 74176; 80053; 81001; 83690; 85025; 99284

== ENCOUNTER → 2024-06-12 16:52 | Outpatient (BNV) | payer MEDICARE, SELFPAY | PROVIDERS: Emergency Provider Emergency Medicine; PCP Internal Medicine; Visit Provider Radiology Diagnostic Radiology | DX: R10.9 Unspecified abdominal pain (principal) | CPT/HCPCS: 74176 ==